=== PATIENT | female | born 1940 | race African-American/Black ===

== ENCOUNTER 2019-06-02 12:43 | Inpatient (IN) | payer MEDICARE, MEDICAID ==
[~2019-06-02] VITALS: Ht 165.1 cm; Wt 68.2 kg
[2019-06-02 21:00] VITALS: BP 119/76
[2019-06-02 21:59] VITALS: BP 132/84; BMI 29.9
[2019-06-02 22:00] VITALS: BP 112/81
[2019-06-02 23:00] VITALS: BP 114/71
--- NOTE | 2019-06-02 23:00 | NUR ---
pt reassessment completed at this time, no chanegs noted, vss
[2019-06-02] MEDS ORDERED: ACETAMINOPHEN325 MG PO (23:11)
[2019-06-02] MEDS ORDERED: COLACE100 MG PO (23:12)
[2019-06-02] MEDS ORDERED: MIRALAX17 GM PO (23:14)
[2019-06-02] MEDS ORDERED: LASIX INJ40 MG/4 ML IV (23:14)
[2019-06-02] MEDS ORDERED: IPRAT-ALBUT 0.5-3 ML UPD (23:16)
[2019-06-02] MEDS ORDERED: PACERONE200 MG PO (23:17)
[2019-06-02] MEDS ORDERED: COMBIVENT RESPIM4 GM INH (23:18)
[2019-06-02] MEDS ORDERED: PEPCID AC20 MG PO (23:18)
[2019-06-02] MEDS ORDERED: LANOXIN IN0.5 MG/2 M IV (23:18)
[2019-06-02] MEDS ORDERED: PROTONIX40 MG PO (23:19)
[2019-06-02] MEDS ORDERED: GLUCOTROL 5 MG T5 MG PO (23:19)
[2019-06-02] MEDS ORDERED: FUROSEMIDE40 MG PO (23:19)
[2019-06-02] MEDS ORDERED: KLOR-CON 1010 MEQ PO (23:20)
[2019-06-02] MEDS ORDERED: LOPRESSOR25 MG PO (23:21)
[2019-06-02] MEDS ORDERED: ELIQUIS5 MG PO (23:21)
[2019-06-02] MEDS ORDERED: RANEXA500 MG PO (23:22)
[2019-06-02] MEDS ORDERED: LANOXIN125 MCG PO (23:26)
[2019-06-02] MEDS ORDERED: ZOFRAN4 MG PO (23:27)
[2019-06-02] MEDS ORDERED: CLARITIN 10 MG10 MG PO (23:29)
[2019-06-03] VITALS (24 sets, daily range): BP systolic 96–135; BP diastolic 54–84; Ht 165.1 cm; Wt 68.2 kg
--- NOTE | 2019-06-03 01:00 | NUR ---
pt resting with eyes closed resp even non labored, vss
--- NOTE | 2019-06-03 03:00 | NUR ---
PT REASSESSMENT COMPLETED AT THIS TIME, NO CHANGES SEEN, WILL MONITOR FOR CHANGES
[2019-06-03 04:30] LABS: BASOPHILS 0.3 % (0-2); EOSINOPHILS 1.3 % (0-7); HEMATOCRIT 36.8 % (36.0-48.0); HEMOGLOBIN 10.4 g/dL (12-16); IMMATURE GRANULOCYTES 0.3 % (0-5); LYMPHOCYTES 17.3 % (15-50); MCHC 28.3 g/dL (31.0-37.0); MCV 69.8 fL (80.0-100.0); MONOCYTES 10.9 % (2-11); NEUTROPHILS 69.9 % (40-80); PLATELET COUNT 198 10x3/uL (130-400); RBC 5.27 10x6/uL (4.00-5.40); RDW 21.8 % (11.5-14.5); WBC 7.7 10x3/uL (4.8-10.8)
--- NOTE | 2019-06-03 05:00 | NUR ---
PT GIVEN HGB BATH AND COMPLETED LINENE CHANGE
[2019-06-03 05:10] LABS: MCH 19.7 pg (26.0-34.0)
[2019-06-03 05:20] LABS: ALBUMIN 2.7 g/dL (3.4-5.0); ALKALINE PHOSPHATASE 78 U/L (46-116); ALT (SGPT) 34 U/L (10-68); BILIRUBIN - DIRECT 0.52 mg/dL (0.00-0.30); BILIRUBIN - INDIRECT 1.38 mg/dL (0.00-1.00); CALC OSMOLALITY 286 mosm/kg (275-300); CALCIUM 8.7 mg/dL (8.5-10.1); CARBON DIOXIDE 32.3 mmol/L (21.0-32.0); CHLORIDE - SERUM 103 mmol/L (98-107); CKMB 2.5 U/L (0.0-3.6); CREATINE KINASE 42 UL (21-215); CREATININE - SERUM 1.1 mg/dL (0.6-1.3); DIGOXIN 1.11 ng/mL (0.90-2.00); GLUCOSE 102 mg/dL (74-106); POTASSIUM - SERUM 4.8 mmol/L (3.5-5.1); PROTEIN - SERUM 7.2 g/dL (6.4-8.2); SODIUM 141 mmol/L (136-145); THYROID STIMULATING HORMONE 8.24 uIU/mL (0.36-3.74); UREA NITROGEN 30 mg/dL (7-18); eGFR NON AFRICAN AMERICAN 51 mL/min (90-120)
--- NOTE | 2019-06-03 07:00 | NUR ---
REPORT RECEIVED. ASSESSMENT COMPLETE PER FLOW SHEET. VSS. NO NEW CHANGES PT RESTING COMFORTABLY DENIES NEEDS WILL CONTINUE TO MONITOR
--- NOTE | 2019-06-03 09:15 | NUR ---
PT RESTING COMFORTABLY WILL CONTINUE TO MONITOR
[2019-06-03 09:34] LABS: CKMB 2.7 U/L (0.0-3.6); CREATINE KINASE 22 UL (21-215)
--- NOTE | 2019-06-03 10:40 | NUR ---
PT TO CT AT THIS TIME.
--- NOTE | 2019-06-03 11:00 | NUR ---
REASSESSMENT COMPLETE PER FLOW SHEET. VSS. NO NEW CHANGES PT RESTING COMFORTABLY WILL CONTINUE TO MONITOR
[2019-06-03 13:41] LABS: % SATURATION 9 % (15-55); IRON 29 ug/dl (35-150); TOTAL IRON BIND CAPACITY 299 ug/dl (260-445); UNSAT IRON BIND CAPACITY 270 ug/dl (150-375)
--- NOTE | 2019-06-03 15:00 | NUR ---
REASSESSMENT COMPLETE PER FLOW SHEET. VSS. NO NEW CHANGES PT RESTING COMFORTABLY WILL CONTINUE TO MONITOR
[2019-06-03 15:52] LABS: CKMB 2.7 U/L (0.0-3.6); CREATINE KINASE 23 UL (21-215)
[2019-06-03 15:53] LABS: TROPONIN-I 0.099 ng/mL (0.000-0.060)
--- NOTE | 2019-06-03 19:00 | NUR ---
PT RESTING IN BED. PT REPORT RECEIVED FROM DAY SHIFT NURSE. VSS. NO COMPLAINTS NOTED AT THIS TIME. SHIFT ASSESSMENT COMPLETED. PT TOLERATED WELL. WILL CONTINUE TO MONITOR
--- NOTE | 2019-06-03 21:00 | NUR ---
PT RESTING IN BED. NO COMPLAINTS NOTED AT THIS TIME. PT STILL ON BIPAP. VSS. WILL CONTINUE TO MONITOR
--- NOTE | 2019-06-03 23:00 | NUR ---
PT RESTING IN BED. BIPAP STILL IN USE. VSS. NO SIGNS OF DISTRESS NOTED. REASSESSMENT COMPLETED. WILL CONTINUE TO MONITOR
[2019-06-04] VITALS (25 sets, daily range): BP systolic 89–124; BP diastolic 37–108
--- NOTE | 2019-06-04 01:00 | NUR ---
PT RESTING IN BED. NO COMPLAINTS NOTED AT THIS TIME. VSS. WILL CONTINUE TO MONITOR
--- NOTE | 2019-06-04 03:00 | NUR ---
PT RESTING IN BED. BIPAP STILL IN PLACE. REASSESSMENT COMPLETED. NO SIGNS OF DISTRESS NOTED. VSS. WILL CONTINUE TO MONITOR
--- NOTE | 2019-06-04 05:00 | NUR ---
PT RESTING IN BED. BIPAP STILL IN USE. VSS. NO COMPLAINTS NOTED AT THIS TIME. WILL CONTINUE TO MONITOR
--- NOTE | 2019-06-04 07:30 | NUR ---
REPORT RECEIVED. ASSESSMENT COMPLETE PER FLOW SHEET. VSS. NO NEW CHANGES PT RESTING COMFORTABLY WILL CONTINUE TO MONITOR
--- NOTE | 2019-06-04 08:50 | NUR ---
STEEL MELTER CALLED TO PREOP. ALL ORDERS ADM. AWAITING STEEL MELTER ARRIVAL
--- NOTE | 2019-06-04 11:00 | NUR ---
REASSESSMENT COMPLETE PER FLOW SHEET. VSS. NO NEW CHANGES WILL CONTINUE TO MONITOR
--- NOTE | 2019-06-04 11:03 | MORECARE ---
CASE MANAGEMENT DISCHARGE SUMMARY PATIENT: LEON ARRINGTON UNIT: [id number] ADM DATE: 06/02/19 AGE: 78 : 39 SEX: F ROOM/BED: D.2308 AUTHOR: ROSA M VELOZ PHYSICIAN: REFERRING PHYSICIAN: JOSELYN LEE MD DATE OF SERVICE: 06/04/19 Discharge Plan Patient Name: LEON ARRINGTON [facility] 1940 Planned Disposition: Anticipated Discharge Date: Discharge Date: Expected LOS: Initial Reviewer: [email or web address] Initial Review Date: 06/04/2019 Generated: 06/04/19 12:02 pm DCPIA - Discharge Planning Initial Assessment Updated by [email or web address]: Kathrine Summers on 06/04/19 11:01 am * PCP [facility] IN [place] * Pharmacy [facility] * Facility Name STATS TRANSFER FROM [facility]. PREVIOUSLY LIVES ATWITH DAUGHTER * ADLs Independent * Other Equipment 02 * Verbal permission to speak to the caregivers and representatives has been obtained from the patient. Yes * Please name any agencies selected above. NONE * Additional services required to return to the preadmission environment? Yes * Can the patient safely return to the preadmission environment? No * Has this patient been hospitalized within the prior 30 days at any hospital? Yes Patient Name: LEON ARRINGTON Page [id number] at 1103 All edits/amendments must be made on the electronic document DICTATION DATE: 06/04/191101 ACID CONDENSER: MORELIA 06/04/191101 RPT#: [id number] DC DATE: STATUS: ADM IN [facility] [address] [place] [address] END OF REPORT
--- NOTE | 2019-06-04 11:11 | MORECARE ---
CASE MANAGEMENT DISCHARGE SUMMARY PATIENT: LEON ARRINGTON UNIT: [id number] ADM DATE: 06/02/19 AGE: 78 : 39 SEX: F ROOM/BED: D.2308 AUTHOR: ROSA M VELOZ PHYSICIAN: REFERRING PHYSICIAN: JOSELYN LEE MD DATE OF SERVICE: 06/04/19 Discharge Plan Patient Name: LEON ARRINGTON Facility: [facility]:[place] : 1940 Planned Disposition: Anticipated Discharge Date: Discharge Date: Expected LOS: Initial Reviewer: [email or web address] Initial Review Date: 06/04/2019 Generated: 06/04/19 12:11 pm Comments DCP- Discharge Planning Updated by [email or web address]: Kathrine Summers on 06/04/19 10:[address] Patient Name: LEON ARRINGTON Admission Status: Elective Accout number: [id number] Admission Date: 06-02-2019 : 1940 Admission Diagnosis: Attending: JOSELYN LEE Current LOS: 2 Anticipated DC Date: Planned Disposition: Primary Insurance: [facility] MEDICARE SOLUTIONS Discharge Planning Comments: CM MET WITH PATIENT AND HER DAUGHTER AFTER OBTAINING CONSENT. PATIENT IS ON BIPAP AND DAUGHTER KEI IS ANSWERING QUESTIONS. LEON PHONE NUMBER IS [phone]. DAUGHTER STATES SHE IS HAVING A CATH TODAY. UNSURE OF NEEDS YET. CM WILL FOLLOW AND REASSES CLOSER TO DC. Crop Or Livestock Tenant Farmer: Kathrine Summers DCPIA - Discharge Planning Initial Assessment Updated by [email or web address]: Kathrine Summers on 06/04/19 11:01 am * PCP [facility] IN [place] * Pharmacy [facility] * Facility Name [facility] TRANSFER FROM [facility]. PREVIOUSLY LIVES ATWITH DAUGHTER * ADLs Independent * Other Equipment 02 * Verbal permission to speak to the caregivers and representatives has been obtained from the patient. Yes * Please name any agencies selected above. NONE * Additional services required to return to the preadmission environment? Yes * Can the patient safely return to the preadmission environment? No * Has this patient been hospitalized within the prior 30 days at any hospital? Yes Last DP export: 06/04/19 10:03 Patient Name: LEON ARRINGTON Page 91301 at 1111 All edits/amendments must be made on the electronic document DICTATION DATE: 06/04/19 1111 DOCUMENTATION NURSE: MORELIA 06/04/19 1111 RPT#: [id number] DC DATE: STATUS: ADM IN [facility] [address] [place] [address] END OF REPORT
--- NOTE | 2019-06-04 12:10 | NUR ---
WELDING ROD COATER CALLED QUESTIONED WHEN PT WAS GOING TO WELDING ROD COATER PT FAMILY UPSET. STATED WOULD BE IN THE NEXT FEW HOURS.
--- NOTE | 2019-06-04 13:10 | NUR ---
CONCHE LOADER AND UNLOADER CALLED TEVIN ANSWERED CONCHE LOADER AND UNLOADER STATED PT WOULD BE TAKEN BACK AT 1500
--- NOTE | 2019-06-04 13:30 | NUR ---
DR CADET AT BEDSIDE GIVEN UDPATE. NEW ORDERS RECIEVED.
--- NOTE | 2019-06-04 14:50 | NUR ---
PIG MACHINE OPERATOR HELPER CALLED STATED PT WAS CANCELED AND WOULD BE TAKEN BACK TOMMOROW.
--- NOTE | 2019-06-04 15:20 | NUR ---
PT FAMILY DISCRUNTLED AT THIS TIME. BOAT AND PLANT UTILITY SUPERVISOR CALLED GIVEN UPDATE STATED THAT THEY WOULD ALERT AURELIA.
--- NOTE | 2019-06-04 16:40 | NUR ---
DR REED PAGEAleena GIVEN UDPATE PT IN UNCONTROLLED FLUTTER AT THIS TIME AT A RATE OF 132 NEW ORDERS RECEIVED. WILL ADM. GIVEN UDPATE PT FAMILY UPSET AT THIS TIME. STATED WAS NOT IN THE BUILDING BUT WOULD SEE THEM IN THE MORNING.
--- NOTE | 2019-06-04 19:00 | NUR ---
BEDSIDE REPORT AND SHIFT ASSESSMENT COMPLETE, SEE FLOWSHEET. DAUGHTER, ERIC AT BEDSIDE. DAUGHTER IS FRUSTRATED THAT PT DID NOT GO TO SOFTWARE QUALITY ASSURANCE SPECIALIST TODAY AND SHE EXPLAINED THAT PT IS HUNGRY AND THIRSTY. I INFORMED HER THAT SHE IS TO STAY ON THE BIPAP AND ONCE I AM ABLE TO TAKE IT OFF I WILL GIVE HER A DRINK, SHE SAID OK. AURELIA FROM SOFTWARE QUALITY ASSURANCE SPECIALIST CAME TO SPEAK WITH FAMILY ABOUT MISCOMMUNICATION TODAY R/T INABILTY TO GET PT TO SOFTWARE QUALITY ASSURANCE SPECIALIST. DAUGHTER SAID THANK YOU AND STATES THAT SHE FEELS BETTER ABOUT THE SITUATION NOW. REPOSITIONED PT IN BED. VSS, NO SIGNS OF ACUTE DISTRESS NOTED. CALL LIGHT IN REACH, WILL MONITOR.
--- NOTE | 2019-06-04 20:20 | NUR ---
SPOKE WITH DR CADET, UPDATED GIVEN. ORDERS TO KEEP PT ON BIPAP AND KEEP SAT'S ABOVE 90S. WILL MONITOR.
--- NOTE | 2019-06-04 23:00 | NUR ---
REASSESSMENT COMPLETE, SEE FLOWSHEET. HR IRREGULAR, RATE OF 103. BIPAP TAKEN OFF FOR LESS THAN A MINUTE TO SWAB MOUTH, 02 SAT REMAINED 94. PT PLACED BACK ON BIPAP, O2 SAT 96. LARGE FORMED BM ON BEDPAN, PT CLEANED UP AND PARTIAL LINEN CHANGE COMPLETE. CALL LIGHT IN REACH, WILL MONITOR.
[2019-06-05] VITALS (11 sets, daily range): BP systolic 97–135; BP diastolic 47–80
--- NOTE | 2019-06-05 01:00 | NUR ---
REPOSITIONED FOR COMFORT, DENIES ANY OTHER NEEDS. VSS, CALL LIGHT IN REACH. WILL MONITOR.
--- NOTE | 2019-06-05 02:25 | NUR ---
ANSWERED CALL LIGHT, PT COMPLAINED OF NAUSEA SAID SHE WAS GOING TO THROW UP. BIPAP TAKEN OFF AND HIGH FLOW NC PLACED ON PT, VOMIT BAG GIVEN. PRN ZOFRAN ADMINISTERED. PT STATED SHE FELT BETTER, 02 SAT DROPPED TO 74 AND PT WAS PUT BACK ON BIPAP, O2 SAT NOW 89. WILL MONITOR.
[2019-06-05 04:21] LABS: ALBUMIN 2.7 g/dL (3.4-5.0); ANION GAP 14.9 mmol/L (8-16); BILIRUBIN - TOTAL 2.69 mg/dL (0.2-1.3); CARBON DIOXIDE 28.9 mmol/L (21.0-32.0); CREATININE - SERUM 1.6 mg/dL (0.6-1.3); POTASSIUM - SERUM 5.8 mmol/L (3.5-5.1); PROTEIN - SERUM 7.3 g/dL (6.4-8.2)
[2019-06-05 04:56] LABS: BASOPHILS 0 % (0-2); EOSINOPHILS 0 % (0-7); HEMATOCRIT 39.1 % (36.0-48.0); HEMOGLOBIN 10.9 g/dL (12-16); IMMATURE GRANULOCYTES 0.2 % (0-5); LYMPHOCYTES 10.5 % (15-50); MCHC 27.9 g/dL (31.0-37.0); MCV 70.7 fL (80.0-100.0); MONOCYTES 1.5 % (2-11); NEUTROPHILS 87.8 % (40-80); PLATELET COUNT 195 10x3/uL (130-400); RBC 5.53 10x6/uL (4.00-5.40); RDW 21.8 % (11.5-14.5); WBC 4.1 10x3/uL (4.8-10.8)
[2019-06-05 05:00] LABS: MCH 19.7 pg (26.0-34.0)
--- NOTE | 2019-06-05 05:00 | NUR ---
PT LETHARGIC, REQUESTING NOT TO HAVE SHEETS CHANGED OR BATH AT THIS TIME. SHE FEELS SHE IS TOO WEAK. WHEN ASKED IF IT CAME DOWN TO BEING INTUBATED SHE SAID YES. I EXPLAINED WHAT THAT INVOLVED AND SHE SAID OK. RR 36, O2 SAT 89 ON 100% BIPAP. WILL CONTINUE TO MONITOR.
--- NOTE | 2019-06-05 07:15 | NUR ---
REPORT RECEIVED. ASSESSMENT COMPLETE PER FLOW SHEET. VSS. NO NEW CHANGES PT RESTING COMFORTABLY DENIES NEEDS WILL CONTINUE TO MONITOR
--- NOTE | 2019-06-05 07:59 | NUR ---
Nutrition follow-up: Diet: ADA consistent CHO; pt now NPO for heart cath PO intake has been very poor due to BIPAP; N/V Wt: 150# Pt needs nutrition support when medically feasible. RDN following.
--- NOTE | 2019-06-05 09:00 | NUR ---
ABG DRAWN AT THIS TIME. DR CADET PAGED. AWAITING CALL BACK.
--- NOTE | 2019-06-05 09:08 | NUR ---
DR CADET IN UNIT AT BEDSIDE GIVEN UPDATE PT IN DISTRESS AT THIS TIME ABG REVIEWED. STATED TO PAGE ANESTHESIA FOR INTUBATION. PT RR 50, O2 SAT 87% BIPAP AT 100% O2.
--- NOTE | 2019-06-05 09:18 | NUR ---
ANESTHESIA AT BEDSIDE PT INTUBATED AT THIS TIME WITHOUT DIFFICULTY. SOAP MAKER CALLED STATED WOULD BE HERE AT 1000. R ARM PIV INFILTRATED AT THIS TIME. CVL NEEDED. DR DARDEN AT BEDSIDE ATTEMPT TO ADM CVL, PT LYING FLAT, HR 32 SINUS GUILLERMINA, ATROPINE ADM. 1007 NO PULSE FOUND, PT IN PEA, CPR ADM. CODE CALLED. SEE CODE BLUE SHEET.
--- NOTE | 2019-06-05 10:10 | NUR ---
FAMILY AT BEDSIDE GIVEN UPDATE
--- NOTE | 2019-06-05 10:48 | NUR ---
CODE CALLED AT THIS TIME, TIME OF [address] AGARWAL
--- NOTE | 2019-06-05 10:50 | NUR ---
DR CADET AND DR WEINSTEIN SPOKE TO FAMILY AT [facility].
--- NOTE | 2019-06-05 11:19 | NUR ---
LUCAS NOTIFIED OF PT
--- NOTE | 2019-06-05 12:00 | NUR ---
HOME NOTIFIED OF NEED OF SERVICES
--- NOTE | 2019-06-05 15:57 | NUR ---
HOME HERE FOR PT
--- NOTE | 2019-06-05 16:45 | MORECARE ---
CASE MANAGEMENT DISCHARGE SUMMARY PATIENT: LEON ARRINGTON UNIT: [id number] ADM DATE: 06/02/19 AGE: 78 : 39 SEX: F ROOM/BED: D.2308 AUTHOR: ROSA M VELOZ PHYSICIAN: REFERRING PHYSICIAN: JOSELYN LEE MD DATE OF SERVICE: 06/05/19 Discharge Plan Patient Name: LEON ARRINGTON Facility: [facility]:[place] : 1940 Planned Disposition: Anticipated Discharge Date: Discharge Date: 06/05/2019 Expected LOS: Initial Reviewer: [email or web address] Initial Review Date: 06/04/2019 Generated: 06/05/19 5:45 pm Comments DCP- Discharge Planning Updated by [email or web address]: Kathrine Summers on 06/04/19 10:[address] Patient Name: LEON ARRINGTON Admission Status: Elective Accout number: [id number] Admission Date: 06-02-2019 : 1940 Admission Diagnosis: Attending: JOSELYN LEE Current LOS: 2 Anticipated DC Date: Planned Disposition: Primary Insurance: [facility] MEDICARE SOLUTIONS Discharge Planning Comments: CM MET WITH PATIENT AND HER DAUGHTER AFTER OBTAINING CONSENT. PATIENT IS ON BIPAP AND DAUGHTER KEI IS ANSWERING QUESTIONS. LEON PHONE NUMBER IS [phone]. DAUGHTER STATES SHE IS HAVING A CATH TODAY. UNSURE OF NEEDS YET. CM WILL FOLLOW AND REASSES CLOSER TO DC. Inspector Penetrant: Kathrine Summers DCPIA - Discharge Planning Initial Assessment Updated by [email or web address]: Kathrine Summers on 06/04/19 11:01 am * PCP [facility] IN [place] * Pharmacy [facility] * Facility Name STAT[facility] TRANSFER FROM [facility]. PREVIOUSLY LIVES ATWITH DAUGHTER * ADLs Independent * Other Equipment 02 * Verbal permission to speak to the caregivers and representatives has been obtained from the patient. Yes * Please name any agencies selected above. NONE * Additional services required to return to the preadmission environment? Yes * Can the patient safely return to the preadmission environment? No * Has this patient been hospitalized within the prior 30 days at any hospital? Yes Last DP export: 06/04/19 10:11 Patient Name: LEON ARRINGTON Page 65069 at 1645 All edits/amendments must be made on the electronic document DICTATION DATE: 06/05/191644 HOSE TUBING BACKER: MORELIA 06/05/191644 RPT#: [id number] DC DATE:06/05/19 STATUS: DIS IN [facility] [address] [place] [address] END OF REPORT
[2019-06-06 14:09] LABS: ANA REFLEX - ANTICHROMATIN ABS 0.7 AI (0.0-0.9); ANA REFLEX - CENTROMERE B ABS <0.2 AI (0.0-0.9); ANA REFLEX - DBL STRANDED DNA <1 IU/mL (0-9); ANA REFLEX - DIRECT Positive (Negative); ANA REFLEX - JO-1 AB <0.2 AI (0.0-0.9); ANA REFLEX - RNP ANTIBODIES 3.6 AI (0.0-0.9); ANA REFLEX - SCL-70 0.2 AI (0.0-0.9); ANA REFLEX - SJOGRENS AB SSA 6.7 AI (0.0-0.9); ANA REFLEX - SJOGRENS AB SSB 3.5 AI (0.0-0.9); ANA REFLEX - SMITH AB 1.4 AI (0.0-0.9)
--- NOTE | 2019-06-11 11:40 | CN ---
PATIENT NAME:LEON ARRINGTON MEDICAL RECORD: [id number] : 38 LOCATION:[id number] ADMIT DATE: 06/02/19 ACCOUNT: [id number] CONSULTING PHYSICIAN: LESA REED MD REFERRING PHYSICIAN: JOSELYN LEE MD DATE OF CONSULTATION: 06/03/2019 DIAGNOSES: 1. Shortness of breath, dyspnea on exertion. 2. Impending respiratory failure. 3. Non-Q-wave myocardial infarction. 4. Coronary artery disease. 5. Status post coronary artery bypass graft surgery. 6. Paroxysmal atrial fibrillation. 7. Chronic obstructive pulmonary disease. 8. Pulmonary hypertension. 9. Noninsulin dependent diabetes. HISTORY OF PRESENT ILLNESS: Mrs. Arrington was transferred here after sustaining impending respiratory failure requiring BiPAP, non-Q-wave myocardial infarction for treatment of her pulmonary hypertension. Mrs. Arrington has a cardiac history of coronary artery bypass graft surgery approximately 10 years ago, atrial fibrillation, right-sided heart failure, and severe pulmonary hypertension, supposedly pulmonary systolic pressures are in the 80-85 range. She is just now having a pulmonary evaluation for this. She is currently on BiPAP. She rapidly desats off the BiPAP. She does have an elevated troponin. She has been having chest discomfort as well as the shortness of breath prior to admission, she thinks for approximately 2 weeks in an escalating fashion. She had episodes of chest pain at rest. Chest discomfort, she is having as a typical angina, it is a heavy aching sensation across the anterior chest associated with severe shortness of breath. She has not had any cough or sputum production. Chest x-ray is compatible with patchy atelectasis. She is undergoing CTA today for evaluation of pulmonary emboli. She continues to have the episodes of chest pressure and the shortness of breath as mentioned. PHYSICAL EXAMINATION: CONSTITUTIONAL/GENERAL APPEARANCE: Well nourished, well developed, appears stated age. EYES: Lids and conjunctivae noninjected. No discharge. No pallor. ENT: Lips within normal limit. No cyanosis. No pallor. NECK: Carotid arteries, bilateral normal upstroke. No bruits. No thrills. No jugular venous pressure or distention. CERVICAL LYMPH NODES: Nontender. Nonenlarged. THYROID: Not enlarged. No nodules. CARDIOVASCULAR: Precordial exam, nondisplaced. No heaves or pericardial thrills. Rate and rhythm, regular. Heart sounds, normal S1, normal S2. No S3, no gallop, no rub. Systolic murmur, not heard. Diastolic murmur, not heard. RESPIRATORY: Respiratory effort, unlabored. Normal curvature. No thoracic deformity. No chest wall tenderness. Percussion, resonant. Auscultation, clear. No wheezes, no rales, no rhonchi. ABDOMEN: Soft, nondistended, nontender. No abdominal pain, no vomiting and normal appetite. MUSCULOSKELETAL: No joint tenderness, normal gait, normal tone. SKIN: Warm and dry. CONSULT REPORT [id number] LEON ARRINGTON OVERALL IMPRESSION: Non-Q-wave myocardial infarction. Past history of 10-year-old grafts. Most likely, she does have recurrent hemodynamically significant coronary artery disease and/or graft failure. I discussed the situation with pulmonary and they prefer that we perform left and right heart catheterization with adenosine infusion to see if the right heart pressures respond to adenosine. We will plan for this tomorrow. She is having a CT angio today. Hopefully, she will have disease such as emergency transcatheter revascularization to help from the standpoint of the chest pain and chest pressure. At this time, her systolic blood pressures in the 90-100, heart rates in the 90s, but it precludes any further medical management. Further care depends upon findings of the catheterization. TRANSINT:[id number] Voice Confirmation ID: [id number] DOCUMENT ID: [id number] LESA REED MD at 1140 CC: [id number] DICTATION DATE: 06/03/19 102 DROP HAMMER SET UP OPERATOR: 06/03/19 1232 DIS IN 06/05/19 [facility] [address] [place] [address]
--- NOTE | 2019-06-11 11:40 | EC ---
PATIENT:LEON ARRINGTON DATE OF SERVICE: 06/02/19 SEX: F MEDICAL RECORD: [id number] DATE OF : [birth year] LOCATION:[facility] D230 AGE OF PATIENT: 78 ADMISSION DATE: 06/02/19 REFERRING PHYSICIAN: INTERPRETING PHYSICIAN: LESA KUMAR MD ECHOCARDIOGRAM REPORT ECHO CHARGES 4 ECHO COMPLETE Date: 06/03/19 CLINICAL DIAGNOSIS: PULMONARY HTN, CHF ECHOCARDIOGRAPHIC MEASUREMENTS (adult normal given) AC root (d.<3.7cm) 2.8 cm LV Septum d (<1.2 cm> 1.0 cm Valve Excursion 1.3 cm LV Septum (systole) 1.2 cm Left Atria (s.<4.0cm> 3.6 cm LVPW d(<1.2cm) 1.1 cm RV (d.<2.3cm) 4.5 cm LVPW (sytole) 1.2 cm LV diastole(<5.6CM) 5.0 cm MV E-F(>70mm/sec) cm LV systole 4.3 cm LVOT Diameter 1.6 cm MV exc.(>10mm) cm Est.ejection fraction (50-75%) % DOPPLER: LVIT cm/sec A 73 cm/sec E 35 cm/sec LA cm/sec RVSP 57.6 mmHg LVOT 117 cm/sec AOP1/2T m/s Asc. Ao 121 cm/sec RVOT 67 cm/sec RA cm/sec PA 94 cm/sec AV Gradient Peak 5.8 mmHg AV Mean 2.8 mmHg AV Area 1.7 cm MV Gradient Peak 2.1 mmHg MV Mean 1.1 mmHg MV Area cm COMMENTS: Flexographic Press Helper: Rufina BAGLEYGENTRY ALEXA Head Waiter/Waitress Banquet: 1 Dr. Kumar TAPE# PACS Pericardial Effusion N DATE OF SERVICE: FINDINGS: 1. Left ventricular chamber size is within normal limits. Left ventricular systolic function is lower limits of normal at 45% to 50%. 2. Left atrium is within normal limits. Right atrium and right ventricular chamber sizes are moderately dilated. 3. Valvular structures have normal structure and motion. 4. Doppler interrogation reveals severe tricuspid regurgitation, no other valvular insufficiency or stenosis. Pulmonary systolic pressure is elevated ECHOCARDIOGRAM REPORT [id number] LEON ARRINGTON estimated at 58 mmHg. 5. No evidence of pericardial effusion or left ventricular thrombus. TRANSINT:[id number] Voice Confirmation ID: [id number] DOCUMENT ID: [id number] LESA KUMAR MD at 1140 CC: [id number] DICTATION DATE: 06/04/19 105 ENTREPRENEURSHIP PROGRAM DIRECTOR: 06/04/19 1058 DIS IN 06/05/19 [facility] [address] [place] [id number]
== END 2019-06-05 10:48 | DRG 208 ==
LOC: D.ICU 12:43
PROVIDERS: Internal Medicine Nephrology; Internal Medicine Pulmonary Disease; ADMIT Emergency Medicine; ATTEND Emergency Medicine
PROC: 5A1935Z Respiratory Ventilation, Less than 24 Consecutive Hours (ICD-10-PCS; principal; 2019-06-05)
PROC: 0BH17EZ Insertion of Endotracheal Airway into Trachea, Via Natural or Artificial Opening (ICD-10-PCS; 2019-06-05)
DX: J96.02 Acute respiratory failure with hypercapnia (principal); I21.4 Non-ST elevation (NSTEMI) myocardial infarction; I50.33 Acute on chronic diastolic (congestive) heart failure; I13.0 Hypertensive heart and chronic kidney disease with heart failure and stage 1 through stage 4 chronic kidney disease, or unspecified chronic kidney disease; N17.9 Acute kidney failure, unspecified; J96.21 Acute and chronic respiratory failure with hypoxia; I27.20 Pulmonary hypertension, unspecified; E11.22 Type 2 diabetes mellitus with diabetic chronic kidney disease; N18.3 Chronic kidney disease, stage 3 (moderate); J44.9 Chronic obstructive pulmonary disease, unspecified; E78.5 Hyperlipidemia, unspecified; I25.10 Atherosclerotic heart disease of native coronary artery without angina pectoris; R55 Syncope and collapse; R91.8 Other nonspecific abnormal finding of lung field; I48.0 Paroxysmal atrial fibrillation; T46.0X5A Adverse effect of cardiac-stimulant glycosides and drugs of similar action, initial encounter; D50.9 Iron deficiency anemia, unspecified; I27.81 Cor pulmonale (chronic); R00.1 Bradycardia, unspecified; R06.82 Tachypnea, not elsewhere classified; I46.9 Cardiac arrest, cause unspecified